=== PATIENT | female | born 1970 | race Caucasian/White ===

== ENCOUNTER → 2017-03-02 | Outpatient (CLI) | payer OTHER ==
[~2017-03-02] MED LIST: A/B OTIC15 ML; BACTRIM DS1 TAB PO; CEFDINIR300 M1 PO; FLO4 PO; HYDROCHLOROTH12.5 M2 PO; IBUPROFEN400 MG PO; LAC PO; LEVAQUIN750 MG PO; MAC100 PO; MACROBID100 MG PO; MOTRIN800 MG PO; PRINIVIL20 MG PO; ZES20 PO; ZESTRIL20 MG PO
== END | disposition home or self-care (01) ==
LOC: MA 10:43
PROC: BH02ZZZ Plain Radiography of Bilateral Breasts (ICD-10-PCS; principal; 2017-03-02)
DX: Z12.31 Encounter for screening mammogram for malignant neoplasm of breast (principal)
CPT/HCPCS: G0202

== ENCOUNTER → 2017-03-05 | Outpatient (CLI) | payer OTHER | END | disposition home or self-care (01) | LOC: US 17:17 | PROC: BW4GZZZ Ultrasonography of Pelvic Region (ICD-10-PCS; principal; 2017-03-05) | DX: R10.2 Pelvic and perineal pain (principal) ==

== ENCOUNTER → 2017-10-15 | Outpatient (CLI) | payer OTHER ==
[2017-10-12 12:20] LABS: BASOPHIL % 0.8 % (0-2); PLATELET COUNT 346 x10^3mcL (130-400)
[2017-10-12 12:21] LABS: RED CELL DISTRIBUTION WIDTH 15.4 % (11.5-14.5)
[2017-10-12 13:13] LABS: ALBUMIN 3.6 g/dL (3.4-5.0); BILIRUBIN TOTAL 0.3 mg/dL (0.20-1.00); CALCIUM 9.2 mg/dL (8.5-10.1); CARBON DIOXIDE 28.1 mmol/L (21-32); CREATININE SERUM 1.2 mg/dL (0.6-1.0); POTASSIUM SERUM 3.4 mmol/L (3.5-5.1); TOTAL PROTEIN, SERUM 7.9 g/dL (6.4-8.2)
== END | disposition home or self-care (01) ==
LOC: US 08:40
PROC: BW4GZZZ Ultrasonography of Pelvic Region (ICD-10-PCS; principal; 2017-10-15)
DX: R10.2 Pelvic and perineal pain (principal)
CPT/HCPCS: 82670

== ENCOUNTER 2017-12-30 23:30 | Emergency (ER) | payer OTHER ==
[~2017-12-30] VITALS: Ht 165.1 cm; Wt 88.9 kg
[2017-12-30 23:36] VITALS: Ht 165.1 cm; Wt 88.9 kg
[2017-12-31 02:13] VITALS: BP 160/95
== END 2017-12-31 02:13 | disposition home or self-care (01) ==
LOC: ED 23:30
DX: N83.202 Unspecified ovarian cyst, left side (principal); I10 Essential (primary) hypertension; Z88.2 Allergy status to sulfonamides
CPT/HCPCS: J1885

== ENCOUNTER 2018-01-25 08:44 | Emergency (ER) | payer OTHER ==
[2018-01-25 09:41] LABS: CARBON DIOXIDE 24.6 mmol/L (21-32); CREATININE SERUM 1.2 mg/dL (0.6-1.0); POTASSIUM SERUM 3.6 mmol/L (3.5-5.1)
[2018-01-25 09:46] LABS: ALBUMIN 3.6 g/dL (3.4-5.0); BILIRUBIN TOTAL 0.38 mg/dL (0.20-1.00); TOTAL PROTEIN, SERUM 8.1 g/dL (6.4-8.2)
[2018-01-25 10:26] LABS: BASOPHIL % 0.5 % (0-2); PLATELET COUNT 322 x10^3mcL (130-400)
[2018-01-25 10:42] LABS: RED CELL DISTRIBUTION WIDTH 14.7 % (11.5-14.5)
[2018-01-25 11:42] VITALS: BP 142/106
== END 2018-01-25 11:44 | disposition home or self-care (01) ==
LOC: ED 08:44
PROVIDERS: Specialist
DX: G89.29 Other chronic pain (principal); R10.2 Pelvic and perineal pain; K59.00 Constipation, unspecified; R19.00 Intra-abdominal and pelvic swelling, mass and lump, unspecified site; I10 Essential (primary) hypertension; Z88.2 Allergy status to sulfonamides; Z87.442 Personal history of urinary calculi
CPT/HCPCS: 36415; J1885

== ENCOUNTER → 2018-02-12 | Outpatient (CLI) | payer OTHER | END | disposition home or self-care (01) | LOC: CA 17:36 | DX: R19.00 Intra-abdominal and pelvic swelling, mass and lump, unspecified site (principal); I10 Essential (primary) hypertension; D25.9 Leiomyoma of uterus, unspecified; N28.9 Disorder of kidney and ureter, unspecified; Z01.818 Encounter for other preprocedural examination ==

== ENCOUNTER → 2019-07-08 | Outpatient (CLI) | payer OTHER | END | disposition home or self-care (01) | LOC: MA 12:47 | PROC: BH02ZZZ Plain Radiography of Bilateral Breasts (ICD-10-PCS; principal; 2019-07-08) | DX: Z12.31 Encounter for screening mammogram for malignant neoplasm of breast (principal) | CPT/HCPCS: 77067 ==

== ENCOUNTER 2019-09-07 09:59 | Emergency (ER) | payer OTHER ==
[~2019-09-07] VITALS: Ht 165.1 cm; Wt 93.0 kg
[2019-09-07 10:19] VITALS: Ht 165.1 cm; Wt 93.0 kg
[2019-09-07 11:16] LABS: PLATELET COUNT 399 x10^3mcL (130-400); RED CELL DISTRIBUTION WIDTH 14.2 % (11.5-14.5)
[2019-09-07 12:03] LABS: CALCIUM 9.3 mg/dL (8.5-10.1); CARBON DIOXIDE 28.4 mmol/L (21-32); CREATININE SERUM 1.1 mg/dL (0.6-1.0); POTASSIUM SERUM 3.3 mmol/L (3.5-5.1)
[2019-09-07 12:04] LABS: BASOPHIL % 2.1 % (0-2)
[2019-09-07 12:08] LABS: ALBUMIN 3.6 g/dL (3.4-5.0); BILIRUBIN TOTAL 0.3 mg/dL (0.20-1.00); TOTAL PROTEIN, SERUM 7.7 g/dL (6.4-8.2)
[2019-09-07 13:22] VITALS: BP 155/70
== END 2019-09-07 13:22 | disposition home or self-care (01) ==
LOC: ED 09:59
PROVIDERS: Emergency Medicine
DX: R04.0 Epistaxis (principal); I10 Essential (primary) hypertension; Z87.442 Personal history of urinary calculi; Z88.2 Allergy status to sulfonamides
CPT/HCPCS: 36415

== ENCOUNTER 2019-09-10 18:48 | Emergency (ER) | payer OTHER ==
[~2019-09-10] VITALS: Ht 165.1 cm; Wt 91.2 kg
[2019-09-10 18:59] VITALS: Ht 165.1 cm; Wt 91.2 kg
[2019-09-10 19:54] LABS: microscopic required? YES; urine erythrocyte TRACE (NEGATIVE)
[2019-09-10 19:59] LABS: BASOPHIL % 0.1 % (0-2); PLATELET COUNT 374 x10^3mcL (130-400)
[2019-09-10 20:01] LABS: RED CELL DISTRIBUTION WIDTH 14.9 % (11.5-14.5)
[2019-09-10 20:23] LABS: T3 TOTAL 0.93 ng/mL
[2019-09-10 20:46] LABS: ALBUMIN 3.6 g/dL (3.4-5.0); BILIRUBIN TOTAL 0.22 mg/dL (0.20-1.00); CALCIUM 9.2 mg/dL (8.5-10.1); CARBON DIOXIDE 27.4 mmol/L (21-32); CREATININE SERUM 1.1 mg/dL (0.6-1.0); TOTAL PROTEIN, SERUM 7.7 g/dL (6.4-8.2)
[2019-09-10 20:49] LABS: CHOLESTEROL/HDL RATIO 4.7
[2019-09-10 20:56] LABS: FREE T4 1.02 ng/dL (0.76-1.46); FREE THYROXINE INDEX 2.4 ug/dL (1.4-4.5); T4(THYROXINE) 7.6 ug/dL (4.7-13.3)
[2019-09-10 21:39] VITALS: BP 137/86
== END 2019-09-10 21:39 | disposition home or self-care (01) ==
LOC: ED 18:48
PROVIDERS: Specialist
DX: R11.0 Nausea (principal); E87.6 Hypokalemia; I10 Essential (primary) hypertension; Z87.442 Personal history of urinary calculi; Z88.2 Allergy status to sulfonamides
CPT/HCPCS: 83880; 84439; J2405; J7030; Q0092

== ENCOUNTER 2019-09-14 10:03 | Emergency (ER) | payer OTHER, SELFPAY ==
[~2019-09-14] VITALS: Ht 162.6 cm; Wt 90.3 kg
[2019-09-14 10:07] VITALS: Ht 162.6 cm; Wt 90.3 kg
[2019-09-14 12:16] LABS: BASOPHIL % 0.3 % (0-2); PLATELET COUNT 372 x10^3mcL (130-400); RED CELL DISTRIBUTION WIDTH 15.3 % (11.5-14.5)
[2019-09-14 12:21] LABS: CALCIUM 9.6 mg/dL (8.5-10.1); CARBON DIOXIDE 26.3 mmol/L (21-32); CREATININE SERUM 1.1 mg/dL (0.6-1.0); POTASSIUM SERUM 3.2 mmol/L (3.5-5.1)
[2019-09-14 12:26] LABS: ALBUMIN 3.6 g/dL (3.4-5.0); BILIRUBIN TOTAL 0.4 mg/dL (0.20-1.00)
[2019-09-14 13:36] VITALS: BP 123/78
== END 2019-09-14 13:36 | disposition home or self-care (01) ==
LOC: ED 10:03
PROVIDERS: Emergency Medicine
DX: R53.1 Weakness (principal); E87.6 Hypokalemia; I10 Essential (primary) hypertension; Z87.442 Personal history of urinary calculi; Z20.828 Contact with and (suspected) exposure to other viral communicable diseases
CPT/HCPCS: 36415; 87804

== ENCOUNTER 2019-09-17 00:39 | Emergency (ER) | payer OTHER ==
[~2019-09-17] VITALS: Ht 165.1 cm; Wt 88.5 kg
[2019-09-17 00:40] VITALS: Ht 165.1 cm; Wt 88.5 kg
[2019-09-17 01:51] LABS: ALBUMIN 3.6 g/dL (3.4-5.0); BILIRUBIN TOTAL 0.34 mg/dL (0.20-1.00); CALCIUM 9.5 mg/dL (8.5-10.1); CREATININE SERUM 1.1 mg/dL (0.6-1.0); TOTAL PROTEIN, SERUM 7.7 g/dL (6.4-8.2)
[2019-09-17 01:55] LABS: POTASSIUM SERUM 2.9 mmol/L (3.5-5.1)
[2019-09-17 02:00] LABS: BASOPHIL % 0.5 % (0-2); PLATELET COUNT 369 x10^3mcL (130-400)
[2019-09-17 02:55] VITALS: BP 154/84
== END 2019-09-17 02:55 | disposition home or self-care (01) ==
LOC: ED 00:39
PROVIDERS: Emergency Medicine
DX: R06.00 Dyspnea, unspecified (principal); R06.02 Shortness of breath
CPT/HCPCS: J1200; Q0092

== ENCOUNTER 2019-09-22 09:25 | Emergency (ER) | payer OTHER ==
[~2019-09-22] VITALS: Ht 165.1 cm; Wt 88.5 kg
[2019-09-22 09:28] VITALS: Ht 165.1 cm; Wt 88.5 kg
[2019-09-22 10:29] LABS: BASOPHIL % 0.2 % (0-2); PLATELET COUNT 318 x10^3mcL (130-400)
[2019-09-22 10:50] LABS: RED CELL DISTRIBUTION WIDTH 15.2 % (11.5-14.5)
[2019-09-22 10:52] LABS: CALCIUM 8.9 mg/dL (8.5-10.1); CARBON DIOXIDE 27.8 mmol/L (21-32); CREATININE SERUM 1.2 mg/dL (0.6-1.0); POTASSIUM SERUM 3.8 mmol/L (3.5-5.1)
[2019-09-22 11:00] LABS: microscopic required? YES; urine erythrocyte NEGATIVE (NEGATIVE)
[2019-09-22 11:02] LABS: ALBUMIN 3.6 g/dL (3.4-5.0); BILIRUBIN TOTAL 0.32 mg/dL (0.20-1.00); T4(THYROXINE) 7.7 ug/dL (4.7-13.3); TOTAL PROTEIN, SERUM 7.8 g/dL (6.4-8.2)
[2019-09-22 11:08] LABS: AMPHETAMINE QUAL UR NONE DETECTED (See below)
[2019-09-22 16:06] VITALS: BP 131/79
== END 2019-09-22 15:30 | disposition home or self-care (01) ==
LOC: ED 09:25
PROVIDERS: Emergency Medicine
DX: R53.1 Weakness (principal); R11.0 Nausea; R63.4 Abnormal weight loss; I10 Essential (primary) hypertension; E66.9 Obesity, unspecified; Z68.32 Body mass index [BMI] 32.0-32.9, adult; Z20.828 Contact with and (suspected) exposure to other viral communicable diseases; Z87.442 Personal history of urinary calculi; Z88.2 Allergy status to sulfonamides
CPT/HCPCS: C9803-CS; J2405; J3490; J7030; Q0092; U0003-CS

== ENCOUNTER → 2019-10-02 | Outpatient (CLI) | payer OTHER | END | disposition home or self-care (01) | LOC: LB 14:14 | DX: N95.1 Menopausal and female climacteric states (principal) | CPT/HCPCS: 82627; 82670; 84403 ==

== ENCOUNTER → 2019-10-21 | Outpatient (CLI) | payer OTHER | END | disposition home or self-care (01) | LOC: LB 14:08 | PROVIDERS: ATTEND Internal Medicine | DX: Z00.00 Encounter for general adult medical examination without abnormal findings (principal) | CPT/HCPCS: 86431 ==

== ENCOUNTER → 2019-10-28 | Outpatient (CLI) | payer OTHER | END | disposition home or self-care (01) | LOC: MI 10:36 | PROC: BP3LZZZ Magnetic Resonance Imaging (MRI) of Right Wrist (ICD-10-PCS; principal; 2019-10-28) | DX: D49.2 Neoplasm of unspecified behavior of bone, soft tissue, and skin (principal) ==

== ENCOUNTER → 2019-11-12 | Outpatient (CLI) | payer OTHER | END | disposition home or self-care (01) | LOC: US 07:36 | PROVIDERS: ATTEND Neuromusculoskeletal Medicine, Sports Medicine | PROC: BH47ZZZ Ultrasonography of Upper Extremity (ICD-10-PCS; principal; 2019-11-12) | DX: R22.31 Localized swelling, mass and lump, right upper limb (principal) ==

== ENCOUNTER 2019-11-14 07:10 | Day surgery (SDC) | payer OTHER ==
[~2019-11-14] VITALS: Ht 165.1 cm; Wt 83.9 kg
[2019-11-14 07:51] VITALS: BP 140/88
[2019-11-14 13:15] VITALS: BP 131/81
== END 2019-11-14 11:45 | disposition home or self-care (01) ==
LOC: DS 07:10 → OR 09:00 → DS 09:00
PROVIDERS: ATTEND Internal Medicine Gastroenterology
DX: K59.09 Other constipation (principal); K57.30 Diverticulosis of large intestine without perforation or abscess without bleeding; K64.8 Other hemorrhoids; K31.7 Polyp of stomach and duodenum; Z11.59 Encounter for screening for other viral diseases
CPT/HCPCS: 43235; 45378; J1200; J1610; J2250; J2310; J3010; J3490; U0003-CS

== ENCOUNTER → 2019-11-19 | Outpatient (CLI) | payer OTHER ==
[2019-11-17 12:05] LABS: ALBUMIN 3.4 g/dL (3.4-5.0); BILIRUBIN TOTAL 0.4 mg/dL (0.20-1.00); CALCIUM 9.1 mg/dL (8.5-10.1); CREATININE SERUM 1.1 mg/dL (0.6-1.0); POTASSIUM SERUM 3.3 mmol/L (3.5-5.1); TOTAL PROTEIN, SERUM 7.8 g/dL (6.4-8.2)
== END | disposition home or self-care (01) ==
LOC: MI 11:11
PROVIDERS: ATTEND Internal Medicine
PROC: BP3LYZZ Magnetic Resonance Imaging (MRI) of Right Wrist using Other Contrast (ICD-10-PCS; principal; 2019-11-19)
DX: R22.31 Localized swelling, mass and lump, right upper limb (principal)
CPT/HCPCS: A9577

== ENCOUNTER → 2020-01-09 | Outpatient (CLI) | payer BC, OTHER ==
[2020-01-09 12:43] LABS: ALBUMIN 4.2 g/dL (3.4-5.0); BILIRUBIN TOTAL 0.44 mg/dL (0.20-1.00); CALCIUM 9.7 mg/dL (8.5-10.1); CARBON DIOXIDE 27.9 mmol/L (21-32); CREATININE SERUM 1.3 mg/dL (0.6-1.0); POTASSIUM SERUM 3.4 mmol/L (3.5-5.1); TOTAL PROTEIN, SERUM 8.2 g/dL (6.4-8.2)
== END | disposition home or self-care (01) ==
LOC: LB 11:02
PROVIDERS: ATTEND Internal Medicine
DX: E11.9 Type 2 diabetes mellitus without complications (principal)

== ENCOUNTER → 2020-01-14 | Outpatient (CLI) | payer BC, OTHER | END | disposition home or self-care (01) | LOC: CT 08:30 | PROC: BW251ZZ Computerized Tomography (CT Scan) of Chest, Abdomen and Pelvis using Low Osmolar Contrast (ICD-10-PCS; principal; 2020-01-14) | DX: C76.41 Malignant neoplasm of right upper limb (principal) | CPT/HCPCS: Q9967 ==